=== PATIENT | female | born 1965 | race Caucasian/White ===

== ENCOUNTER 2017-03-11 11:17 | Day surgery (SDC) | payer BC ==
[2017-02-20 11:56] LABS: HEMATOCRIT 38.1 % (36.0-48.0); HEMOGLOBIN 12.8 g/dL (12.0-16.0)
[2017-02-20 12:11] LABS: A/G RATIO 1.4 (0.7-1.9); ALBUMIN 4.2 G/DL (3.5-5.0); ALKALINE PHOSPHATASE 92 U/L (45-117); BUN (BLOOD UREA NITROGEN) 13 MG/DL (6-23); CALCIUM, SERUM 8.8 MG/DL (8.5-10.4); CHLORIDE, SERUM 107 MMOL/L (96-112); CO2 (CARBON DIOXIDE) 27 MMOL/L (24-34); CREATININE 0.98 MG/DL (0.55-1.02); GFR AFRICAN AMERICAN 76 ML/MIN (>=60); GFR NON AFRICAN AMERICAN 66 ML/MIN (>=60); GLOBULIN 3.1 G/DL (2.5-4.1); POTASSIUM, SERUM 4.1 MMOL/L (3.5-5.3); SGOT(AST) 20 U/L (5-40); SGPT(ALT) 17 U/L (5-65); SODIUM, SERUM 139 MMOL/L (135-148); TOTAL BILIRUBIN 0.4 MG/DL (0-1.2); TOTAL PROTEIN 7.3 G/DL (6.0-8.5)
[2017-02-20 12:13] LABS: GLUCOSE, SERUM 98 MG/DL (60-99)
[2017-02-25 17:37] LABS: DIRECT BILIRUBIN < 0.1 MG/DL (0.0-0.4); INDIRECT BILIRUBIN(NOT ORDER) 0.3 MG/DL (0.1-0.9)
--- NOTE | ~2017-03-11 | OP ---
Record Of Operation [facility] [address] [place]. [address] NAME: CATHRYN VIERA : 61 STATUS : REG [facility] [place] PAT#: [id number] AGE: 51 ADM/REG DATE : 03/11/17 MR#: [id number] REPORT SERV DATE: 03/11/17 DICTATED BY: MYNOR KAY DATE: 03/11/17 REPORT STATUS : Draft TRANSCRIBED BY: MODL DATE: 03/11/17 DATE OF PROCEDURE: 03/11/2017 PREOPERATIVE DIAGNOSIS: Umbilical/incisional hernia. POSTOPERATIVE DIAGNOSIS: Umbilical/incisional hernia. PROCEDURE: Reduction and mesh patch repair of umbilical/incisional hernia. PROCEDURE: The patient was brought to the operating suite, placed in supine position, underwent satisfactory general endotracheal anesthesia without incident. The skin of the abdomen was scrubbed, prepped, and draped in usual sterile fashion. 0.5% Marcaine with epinephrine was utilized as supplemental local anesthesia at the skin. Initially, a curvilinear infraumbilical incision was performed at the junction of the lower umbilical ring and a previous lower abdominal midline incision. Skin was incised, dissecting through the skin and subcutaneous tissue. The hernia defect was actually just about 5 mm inferior in the midline to the umbilical ring. The umbilical skin was elevated up off the umbilical ring and this showed about a 3 mm defect, but inferiorly probably at the top. The cephalad apex of her prior infraumbilical midline incision. There was a protrusion of preperitoneal fat and hernia sac through the midline. This was dissected free from the surrounding subcutaneous tissue and muscular aponeurotic fascia and excised and then some further preperitoneal fat was reduced into the peritoneal cavity. The hernia defect was enlarged slightly with the cautery enough to admit an index finger sweeping any adhesions from beneath the muscular aponeurotic fascia. A PVPM patch was chosen and placed under local anesthesia, rolled up like a taco, and placed in the peritoneal cavity. This was allowed to expand behind the midline fascia. Stay sutures of 0 Ethibond were placed medially through the rectus sheath bilaterally, taking intervening bite of patch, and plicating it to the back of the rectus sheath laterally. The suturing tails were trimmed, and in a "[id number]" interrupted vertical mattress fashion, the cephalad aspect of the umbilical fascia was drawn over the caudad aspect, incorporating the two suturing tails of the mesh, again using 0 Ethibond sutures. Three sutures were placed. The mesh covered the infraumbilical defect as well as the umbilical ring. Subcutaneous tissue was irrigated and closed with interrupted 3-0 Vicryl, running subcuticular stitch 4-0 Vicryl for the skin. Dermabond skin adhesive placed. The patient tolerated the procedure quite well and was returned to PACU in stable condition. At the termination of the procedure, sponge, needle, lap, and instrument counts were correct x3. ESTIMATED BLOOD LOSS: Less than 5 mL. Record Of Operation [address] [place]. [address] NAME: CATHRYN VIERA : 61 STATUS : REG [facility]#: [id number] AGE: 51 ADM/REG DATE : 03/11/17 MR#: [id number] REPORT SERV DATE: 03/11/17 DICTATED BY: MYNOR KAY DATE: 03/11/17 REPORT STATUS : Draft TRANSCRIBED BY: ELENI DATE: 03/11/17 DILAN/ELENI Mynor Kay M.D. / [id number] CC: Mynor Kay M.D.
[~2017-03-11 11:17] MED LIST: CELEXA40 MG PO; LORTAB 5 PO; MAGOX4 PO; OS500+D PO; PHENTERMINE37.5 MG PO; POTASSIUM OTC PO; PROTONIX PO; SYN112 PO; WELLXL150 PO; ZOFRAN4 PO
== END 2017-03-11 17:45 | disposition home or self-care (01) ==
LOC: SDC 11:17
PROVIDERS: Specialist
PROC: 0WUF0JZ Supplement Abdominal Wall with Synthetic Substitute, Open Approach (ICD-10-PCS; principal; 2017-03-11 12:45)
DX: K42.9 Umbilical hernia without obstruction or gangrene (principal); E03.9 Hypothyroidism, unspecified; Z79.899 Other long term (current) drug therapy
CPT/HCPCS: 80053; 82248; 85014; 85018; 87641; 93005; A9270-GY; C1781; J0690; J1885; J2250; J2270; J2405; J2710; J3010